=== PATIENT | female | born 1950 | race African-American/Black ===

== ENCOUNTER 2017-10-16 09:30 | Outpatient (CLI) | payer BC | END 2017-10-16 09:31 | disposition home or self-care (01) | LOC: BICMAMMO 09:30 | PROVIDERS: ATTEND Family Medicine | DX: Z12.31 Encounter for screening mammogram for malignant neoplasm of breast (principal); Z78.0 Asymptomatic menopausal state; M85.80 Other specified disorders of bone density and structure, unspecified site | CPT/HCPCS: 77063; 77067; 77080 ==